=== PATIENT | female | born 1950 | race Caucasian/White ===

== ENCOUNTER → 2018-03-08 | Day surgery (SDC) | payer MEDICARE, OTHER ==
[2018-03-07 14:18] LABS: BASOPHILS % 0.4 % (0.0-1.0); EOSINOPHILS # (AUTO) 0.1 (0.0-0.4); HEMATOCRIT 41.2 % (34.2-44.1); HEMOGLOBIN 14.1 g/dL (12.0-16.0); LYMPHOCYTES # (AUTO) 1.3 (1.0-3.2); LYMPHOCYTES % 24.7 % (18.0-39.1); MEAN CORPUSCULAR HEMOGLOBIN 30.7 pg (28-32); MEAN CORPUSCULAR HGB CONC 34.2 g/dL (31-35); MEAN CORPUSCULAR VOLUME 89.6 fL (81-99); MONOCYTES # (AUTO) 0.4 (0.2-0.8); MONOCYTES % 7.9 % (4.4-11.3); NEUTROPHILS # (AUTO) 3.5 (2.1-6.9); NEUTROPHILS % 64.6 % (38.7-80.0); PLATELET COUNT 247 x10e3/uL (140-360); RED CELL DISTRIBUTION WIDTH 12.4 % (11.7-14.4)
[2018-03-07 14:54] LABS: ALANINE AMINOTRANSFERASE 17 IU/L (0-55); ALBUMIN 4.5 g/dL (3.5-5.0); ALBUMIN/GLOBULIN RATIO 1.2 (0.8-2.0); ALKALINE PHOSPHATASE 82 IU/L (40-150); ANION GAP 12.4 mmol/L (8-16); BLOOD UREA NITROGEN 10 mg/dL (7-26); BUN/CREATININE RATIO 13 (6-25); CALCIUM 9.1 mg/dL (8.4-10.2); CARBON DIOXIDE 29 mmol/L (22-29); CHLORIDE 104 mmol/L (98-107); CHOL/HDL RATIO 2.6 (3.0-3.6); CHOLESTEROL 163 MD/DL (0-199); CREATININE, SERUM 0.77 mg/dL (0.57-1.11); EST GLOMERULAR FILTRATION RATE > 60 ML/MIN (60-); GLUCOSE 79 mg/dL (74-118); HDL CHOLESTEROL 62 MG/DL (40-60); LDL CHOLESTEROL 77 MG/DL (60-130); POTASSIUM 3.4 mmol/L (3.5-5.1); SODIUM 142 mmol/L (136-145); TRIGLYCERIDES 119 MG/DL (0-149)
[~2018-03-08] VITALS: Ht 165.1 cm; Wt 59.9 kg
[~2018-03-08] MED LIST: ABILIFY5 MG PO; ALPRAZOLAM 0.5 MG TAB ONE; APTIOM PO; ATORVASTATIN CA20 MG PO; CETIRIZINE PO; CHOLEST OFF450 MG PO; CLONAZEPAM1 MG PO; CO Q-10200 MG PO; DIPHENHYDRAMINE HCL 25 MG CAP ONE; FENTANYL CITRATE/PF 100MCG/2 ML INJ ONE; HEPARIN SOD/SOD CHLORIDE 2,000 ML ONE; IBUPROFEN200 MG PO; IOPAMIDOL 370 MG/ML 200 ML INFUS..BTL INJ ONE; LAMOTRIGINE100 MG PO; LIDOCAINE HCL 2% LOCAL 20 ML VIAL ONE; METHYLPREDNISOLONE SOD SUCC 125 MG/2ML VIAL ONE; MIDAZOLAM HCL 2 MG/2 ML VIAL ONE; OCUVITE TABLET1 EAC1 PO; PHENOBARBITAL32.4 MG PO; PHENOBARBITAL64.8 MG PO; SIMVASTATIN20 MG PO; SODIUM CHLORIDE 0.9% 1000ML 1,000 ML ONE; TOPIRAMATE25 MG PO; VIMPAT100 MG PO; VITAMIN C500 M4 PO; VITAMIN D31000 UNIT PO
[2018-03-08 11:15] VITALS: BP 121/76
[2018-03-08 11:30] VITALS: BP 131/72
[2018-03-08 12:00] VITALS: BP 117/83
--- NOTE | 2018-03-08 13:31 | Operative Report ---
DATE OF PROCEDURE: March 08, 2018 PREOPERATIVE DIAGNOSES 1. Heart failure. 2. Cardiomyopathy. POSTOPERATIVE DIAGNOSES 1. Heart failure. 2. Cardiomyopathy. OPERATIONS PERFORMED 1. Coronary angiography. 2. Left heart cath. 3. Left ventriculogram. 4. Left femoral angiography. 5. Mynx vascular closure. DETAILS OF PROCEDURE: Informed consent was obtained, and all of the risks and benefits of the procedure were explained to the patient. Patient was prepped in sterile fashion. Left groin was draped. Left groin was infiltrated with 1% lidocaine to achieve adequate local anesthesia. Modified Seldinger technique was used with micropuncture assess to obtain assess to the left common femoral artery with fluoroscopic guidance. A 6-[place] sheath was inserted into the left common femoral artery. Coronary angiography was performed using a Bj left and Bj right 6-[place] catheters for left and right coronary arteries respectively. A 6-[place] angled pigtail catheter was used to perform left heart catheterization and left ventriculography using hand injection. All catheters were removed over a guide wire. Femoral angiography was performed, and access site was deemed suitable for vascular closure device. A Mynx vascular closure device was deployed. The 6-[place] sheath was removed. The procedure was completed without any complications. Patient will be monitored for 2 hours in the post-procedure recovery area, ambulated and discharged if there are no further issues. SIGNIFICANT FINDINGS 1. Ectatic coronary arteries including left main, LAD and RCA without significant stenosis. 2. Slow flow in the ectatic coronary arteries. 3. Mildly elevated LV end-diastolic pressure. ANESTHESIA: Local and moderate sedation. SPECIMEN REMOVED: None. ESTIMATED BLOOD LOSS: 50 mL. COMPLICATIONS: None. GRAFTS OR IMPLANTS PLACED: Yes. Mynx vascular closure device in the left common femoral artery. Job#: [id number]
== END | disposition home or self-care (01) ==
LOC: CATH LAB 08:32
PROVIDERS: ATTEND Internal Medicine
DX: I50.9 Heart failure, unspecified (principal); I20.8 Other forms of angina pectoris; I42.9 Cardiomyopathy, unspecified; E78.00 Pure hypercholesterolemia, unspecified; G40.909 Epilepsy, unspecified, not intractable, without status epilepticus; Z01.812 Encounter for preprocedural laboratory examination
CPT/HCPCS: 36415; 80053; 80061; 85025; 93458; J2001; J2250; J2930; J7030; Q9967